=== PATIENT | male | born 1955 | race African-American/Black ===

== ENCOUNTER 2017-02-27 22:04 | Emergency (ER) | payer MEDICAID, OTHER ==
[~2017-02-27] VITALS: Ht 180.3 cm; Wt 90.0 kg
[2017-02-27 22:13] VITALS: BP 172/104
== END 2017-02-28 00:45 | disposition left against medical advice (07) ==
LOC: ER 22:04
DX: M79.601 Pain in right arm (principal); Z53.21 Procedure and treatment not carried out due to patient leaving prior to being seen by health care provider

== ENCOUNTER 2018-07-23 21:57 | Emergency (ER) | payer MEDICAID ==
[~2018-07-23] VITALS: Ht 182.9 cm; Wt 72.0 kg
[2018-07-23] MEDS ORDERED: ACETAMINOPHEN 325MG TABLET PO STA (23:41)
[2018-07-24 02:00] VITALS: BP 114/79
== END 2018-07-24 02:25 | disposition home or self-care (01) ==
LOC: ER 22:09
DX: S09.8XXA Other specified injuries of head, initial encounter (principal); R42 Dizziness and giddiness; I10 Essential (primary) hypertension; F20.9 Schizophrenia, unspecified; F43.10 Post-traumatic stress disorder, unspecified; F12.10 Cannabis abuse, uncomplicated; W18.39XA Other fall on same level, initial encounter; Y93.89 Activity, other specified; Y92.89 Other specified places as the place of occurrence of the external cause; Y99.8 Other external cause status; Z98.890 Other specified postprocedural states
CPT/HCPCS: 99284